=== PATIENT | female | born 1970 | race African-American/Black ===

== ENCOUNTER 2019-09-01 21:32 | Emergency (ER) | payer MEDICAID ==
[~2019-09-01] VITALS: Ht 162.6 cm; Wt 81.6 kg
[2019-09-01 21:37] VITALS: BP 160/90
--- NOTE | 2019-09-01 21:37 | NUR ---
PT WHEELCHAIRED TO BED #8
--- NOTE | 2019-09-01 21:47 | NUR ---
PT C/O SOB X1 DAY. PT STATES SHARP PAIN UPON INHALATION. PAIN PROVOKED BY AMBULATION. PT ABLE TO SPEAK IN FULL SENTENCES W/ NO DIFFICULTY. O2 SAT 99% ON ROOM AIR. DIMISHED BREATH SOUNDS UPON INHILATION BILATERAL BASES. PT DENIES N/V/D. VSS AT THIS TIME. PT SITTING IN BED, PLEASANT. MEDHX: COPD, DM, HTN ALLERGIES: DENIES
[2019-09-01] MEDS ORDERED: KETOROLAC 60 MG/2 ML VIAL IM ONE (23:10)
--- NOTE | 2019-09-01 23:56 | NUR ---
Dr. Orellana examining patient.
[2019-09-02 00:19] VITALS: BP 160/90
--- NOTE | 2019-09-02 00:19 | NUR ---
Patient discharged with v/s stable. Written and verbal after care instructions given and explained. Patient alert, oriented and verbalized understanding of instructions. Ambulatory with [facility]. NO ASSISTANCE WAS NEEDED. All questions addressed prior to discharge. ID band removed. Patient advised to follow up with PMD. Rx of MOTRIN AND PREDNISONE WERE given. Patient educated on indication of medication including possible reaction and side effects. Opportunity to ask questions provided and answered. PT WAS INSTRUCTED TO TAKE HER HTN MEDICATION WHEN SHE GOT HOME AND DIRECTED. PT WAS EDUCATED ON THE RISKS OF NOT TAKING MEDICATION PROPERLY. Addendum: 09/02/19 at 0038 by [email or web address] Patient discharged with v/s stable. Written and verbal after care instructions given and explained. Patient alert, oriented and verbalized understanding of instructions. Ambulatory with [facility]. NO ASSISTANCE WAS NEEDED. All questions addressed prior to discharge. ID band removed. Patient advised to follow up with PMD. Rx of MOTRIN AND PREDNISONE WERE given. Patient educated on indication of medication including possible reaction and side effects. Opportunity to ask questions provided and answered. PT WAS INSTRUCTED TO TAKE HER HTN MEDICATION WHEN SHE GOT HOME AND DIRECTED PER ERMD. PT WAS EDUCATED ON THE RISKS OF NOT TAKING MEDICATION PROPERLY.
== END 2019-09-02 00:19 | disposition home or self-care (01) ==
LOC: MED 21:32
DX: R06.02 Shortness of breath (principal); R50.9 Fever, unspecified; R11.0 Nausea; R07.89 Other chest pain; J44.9 Chronic obstructive pulmonary disease, unspecified; E11.9 Type 2 diabetes mellitus without complications; I10 Essential (primary) hypertension; F17.200 Nicotine dependence, unspecified, uncomplicated
CPT/HCPCS: 96372; 99283; J1885

== ENCOUNTER 2019-09-07 02:44 | Emergency (ER) | payer MEDICAID ==
[~2019-09-07] VITALS: Ht 175.3 cm; Wt 81.6 kg
--- NOTE | 2019-09-07 02:56 | NUR ---
PT TO ER BED 6
[2019-09-07 03:02] VITALS: BP 167/79
--- NOTE | 2019-09-07 03:05 | NUR ---
49 Y/O F PRESENTS TO ER C/O OF SHORTNESS OF BREATHE SINCE TODAY. PER PT "THE AIR QUALITY OUT THERE IS BAD BECAUSE OF ALL THESE FIRES." PT FEELS SHORT OF BREATHE AND HAS CHEST DISCOMFORT. PAIN LEVEL 6/10, DISCOMFORT WHILE BREATHING, PAIN DOES NOT RADIATE. RESPIRATIONS ARE EVEN AND UNLABORED. PT O2 SATURATION AT 99% ON RA. PT VOMITED X1. PT DENIES NAUSEA AT THIS TIME. NKA. MED HX: PREDIABETIC AND HTN. SAFETY MEASURES IN PLACE. ERMD AT BEDSIDE.
--- NOTE | 2019-09-07 03:14 | NUR ---
LAB AT BEDSIDE
[2019-09-07 03:26] LABS: BASOPHILS # (AUTO) 0.1 K/uL (0.00-0.22); BASOPHILS % (AUTO) 1.3 % (0.0-2.0); EOSINOPHILS # (AUTO) 0.1 K/uL (0-0.4); EOSINOPHILS % (AUTO) 2.8 % (0.0-4.0); HEMATOCRIT 31.9 % (36-48); HEMOGLOBIN 10.1 g/dL (12.0-16.0); LYMPHOCYTES # (AUTO) 1.4 K/uL (2.5-16.5); LYMPHOCYTES % (AUTO) 34.1 % (20.5-51.1); MEAN CORPUSCULAR HEMOGLOBIN 24 pg (27-31); MEAN CORPUSCULAR HGB CONC 32 g/dL (33-37); MEAN CORPUSCULAR VOLUME 75.7 fL (80-94); MONOCYTES # (AUTO) 0.5 K/uL (0.8-1.0); MONOCYTES % (AUTO) 11.5 % (1.7-9.3); NEUTROPHILS % (AUTO) 50.3 % (42.2-75.2); PLATELET COUNT (AUTO) 225 K/uL (140-450); RED BLOOD CELL COUNT(AUTO) 4.21 MIL/uL (4.20-5.40)
[2019-09-07 03:54] LABS: ALBUMIN 3.9 g/dL (3.4-5.0); ANION GAP 14.3 (8-16); CARBON DIOXIDE 28.6 mmol/L (21-32); CREATININE 0.6 mg/dL (0.6-1.3); TOTAL BILIRUBIN 0.5 mg/dL (0.0-1.0)
[2019-09-07 03:57] LABS: POTASSIUM 2.9 mmol/L (3.5-5.1)
[2019-09-07] MEDS ORDERED: POTASSIUM CHLORIDE 20% 40 MEQ/15 ML UDC PO ONE (04:00)
[2019-09-07] MEDS ORDERED: ALBUTEROL SULFATE/IPRATROPIU 3 ML SOL IH ONE (04:15)
[2019-09-07] MEDS ORDERED: ONDANSETRON 4 MG/2 ML VIAL IVP ONE (04:15)
[2019-09-07] MEDS ORDERED: POTASSIUM CHL 20 MEQ/ 1/2 NS 1,000 ML IV ONE (04:15)
--- NOTE | 2019-09-07 04:15 | NUR ---
PT VOMITED X 1 10 MINUTES AFTER MEDICATION ADMINISTRATION. ERMD MADE AWARE.
[2019-09-07] MEDS ORDERED: POTASSIUM CHLORIDE 10 MEQ TABER PO ONE (04:20)
[2019-09-07] MEDS ORDERED: ONDANSETRON 4 MG ODT PO ONE (04:20)
--- NOTE | 2019-09-07 04:36 | NUR ---
RT AT BEDSIDE
--- NOTE | 2019-09-07 05:23 | NUR ---
Dr. Hogan examining patient.
[2019-09-07 05:40] VITALS: BP 159/91
--- NOTE | 2019-09-07 05:40 | NUR ---
DISCHARGE PAPERS GIVEN TO PT. PT STATES RELIEF. NO C/O PAIN. NAUSEA. RX OF ALBUTEROL INH AND PREDNISONE GIVEN. SIDE EFFECTS EXPLAINED. INSTRUCTED TO F/U WITH PCP AND WHEN TO RETURN TO ER. PT VERBALLIZED UNDERSTANDING OF DC INSTRUCTIONS. ALL QUESTIONS ANSWERED.
== END 2019-09-07 05:40 | disposition home or self-care (01) ==
LOC: MED 02:44
DX: R06.02 Shortness of breath (principal); R05 Cough; J44.9 Chronic obstructive pulmonary disease, unspecified; E11.9 Type 2 diabetes mellitus without complications; I10 Essential (primary) hypertension; F17.200 Nicotine dependence, unspecified, uncomplicated
CPT/HCPCS: 36415; 71045; 80053; 83880; 84484; 85025; 87804; 93005; 94640; 99284; J7620; Q0092; Q0162

== ENCOUNTER 2020-06-09 19:41 | Emergency (ER) | payer MEDICAID ==
[~2020-06-09] VITALS: Ht 162.6 cm; Wt 77.1 kg
[2020-06-09 19:57] VITALS: BP 172/89
--- NOTE | 2020-06-09 23:13 | NUR ---
PT WHEELCHAIRED TO BED 3
--- NOTE | 2020-06-09 23:20 | NUR ---
LOW BACK PAIN RADAITING TO RIGHT LEG. PT STATES THAT SHE WAS IN A CHAIR YESTERDAY AND TWISTED HER BODY AND FELT PAIN AFTER THAT. 09/01 PAIN. PT STATES, " I WAS LIFTING SOMETHING HEAVY AND I HEARD SOMETHING POP." PAIN RDAIATES TO RT LEG AND DESCRIBES IT SHARP SHOOTING PAIN. PT STATES SHE FEELS HER RT LEG GETS NUMB WHEN THE PAIN STARTS. VSS. A&OX4. TOOK MOTRIN AT 1600 TODAY. PAIN IS GRADUALLY GETTING WORSE. CMS INTACT. CAP REFILL < 3. NO OBVIOUS DEFORMITY OR INJURIES NOTED. NKDA. PMH: HTN, ENLARGED HEART.
[2020-06-09] MEDS ORDERED: MORPHINE SULFATE 4 MG/ML SYR IM ONE (23:30)
[2020-06-09] MEDS ORDERED: KETOROLAC 30 MG/ML VIAL IM ONE (23:30)
--- NOTE | 2020-06-10 01:53 | NUR ---
pt sleeping comfortably. equal chest rise and fall. pt states pain level decreased. 3/10 pain level.
[2020-06-10] MEDS ORDERED: ONDANSETRON 4 MG ODT PO ONE (02:35)
[2020-06-10 02:41] VITALS: BP 151/81
--- NOTE | 2020-06-10 02:41 | NUR ---
Patient discharged with v/s stable. Written and verbal after care instructions given and explained. Patient alert, oriented and verbalized understanding of instructions. Wheel Chair Assisted. All questions addressed prior to discharge. ID band removed. Patient advised to follow up with PMD. Rx of NAPROSYN given. Patient educated on indication of medication including possible reaction and side effects. Opportunity to ask questions provided and answered.
== END 2020-06-10 02:41 | disposition home or self-care (01) ==
LOC: MED 19:41
DX: G89.29 Other chronic pain (principal); M54.5 Low back pain; E11.9 Type 2 diabetes mellitus without complications; J44.9 Chronic obstructive pulmonary disease, unspecified; I10 Essential (primary) hypertension
CPT/HCPCS: 96372; 99284; J1885; J2270; Q0162

== ENCOUNTER 2021-06-15 20:44 | Emergency (ER) | payer MEDICAID ==
[~2021-06-15] VITALS: Ht 162.6 cm; Wt 76.2 kg
[2021-06-15 20:50] VITALS: BP 156/127
[2021-06-15] MEDS ORDERED: LORazepam 1 MG TAB PO ONE (20:55)
[2021-06-15 21:30] LABS: BASOPHILS % (AUTO) 0.8 % (0.0-2.0); EOSINOPHILS % (AUTO) 0.2 % (0.0-4.0); HEMATOCRIT 33.9 % (36-48); HEMOGLOBIN 10.8 g/dL (12.0-16.0); LYMPHOCYTES % (AUTO) 20.2 % (20.5-51.1); MEAN CORPUSCULAR HEMOGLOBIN 25 pg (27-31); MEAN CORPUSCULAR HGB CONC 32 g/dL (33-37); MEAN CORPUSCULAR VOLUME 79.2 fL (80-94); MONOCYTES # (AUTO) 0.5 K/uL (0.8-1.0); MONOCYTES % (AUTO) 11.3 % (1.7-9.3); NEUTROPHILS # (AUTO) 3.2 K/uL (1.8-7.7); NEUTROPHILS % (AUTO) 67.5 % (42.2-75.2); PLATELET COUNT (AUTO) 303 K/uL (140-450); RED BLOOD CELL COUNT(AUTO) 4.28 MIL/uL (4.20-5.40); RED CELL DISTRIBUTION WIDTH 22.4 % (11.6-13.7); WHITE BLOOD COUNT (AUTO) 4.8 K/uL (4.8-10.8)
[2021-06-15 21:36] LABS: ANION GAP 14.3 (8-16); CARBON DIOXIDE 31.5 mmol/L (21-32); CREATININE 0.7 mg/dL (0.6-1.3)
[2021-06-15 21:39] LABS: POTASSIUM 2.8 mmol/L (3.5-5.1)
[2021-06-15] MEDS ORDERED: POTASSIUM CHLORIDE 10 MEQ TABER PO ONE (21:55)
[2021-06-15 22:13] VITALS: BP 100/76
== END 2021-06-15 22:13 | disposition home or self-care (01) ==
LOC: MED 20:44
DX: F41.9 Anxiety disorder, unspecified (principal); E87.6 Hypokalemia; R11.2 Nausea with vomiting, unspecified; R29.0 Tetany; J44.9 Chronic obstructive pulmonary disease, unspecified; E11.9 Type 2 diabetes mellitus without complications; I10 Essential (primary) hypertension
CPT/HCPCS: 36415; 80048; 85025; 99283

== ENCOUNTER 2021-08-03 22:08 | Emergency (ER) | payer MEDICAID ==
[~2021-08-03] VITALS: Ht 162.6 cm; Wt 76.2 kg
[2021-08-03 22:08] VITALS: BP 188/109
--- NOTE | 2021-08-03 22:10 | NUR ---
51/F BIBA FROM HOME C/O ALTERED MENTAL STATUS S/P ETOH PER EMS. FAMILY CALLED EMS BECAUSE PT IS MORE CONFUSED THAN NORMAL. PT ENDORSES DAILY CONSUMPTION OF ALCOHOL AND SMOKING. UPON ASSESSMENT PT COOPERATIVE, ABLE TO MAKE NEEDS KNOWN, PERRL. PT WITH MOMENTS OF CONFUSION. MEDHX- ETOH ABUSE, HTN, ENLARGED HEART, PYSCH NKA
--- NOTE | 2021-08-03 22:11 | NUR ---
PT BRITNEY MORRISON. TAKEN TO BED 12
--- NOTE | 2021-08-03 22:20 | NUR ---
Dr. Kim examining patient.
--- NOTE | 2021-08-03 22:36 | NUR ---
CAGE UNLOADER AT BEDSIDE
--- NOTE | 2021-08-03 22:49 | NUR ---
RETURN CALL FROM PT DAUGHTER ANDREA WHO SPOKE WITH DR. STAPLETON
--- NOTE | 2021-08-03 22:57 | NUR ---
PT TAKEN TO RADIOLOGY
[2021-08-03 22:58] LABS: HEMOGLOBIN 10.4 g/dL (12.0-16.0); MEAN CORPUSCULAR HEMOGLOBIN 27 pg (27-31); MEAN CORPUSCULAR HGB CONC 33 g/dL (33-37); MEAN CORPUSCULAR VOLUME 82.3 fL (80-94); PLATELET COUNT (AUTO) 302 K/uL (140-450); RED BLOOD CELL COUNT(AUTO) 3.89 MIL/uL (4.20-5.40); RED CELL DISTRIBUTION WIDTH 24.1 % (11.6-13.7); WHITE BLOOD COUNT (AUTO) 4.1 K/uL (4.8-10.8)
[2021-08-03 23:22] LABS: ALBUMIN 3.9 g/dL (3.4-5.0); ANION GAP 14.9 (8-16); ASPARTATE AMINOTRANSFERASE 155 U/L (15-37); CHLORIDE 96 mmol/L (98-107); CREATININE 0.7 mg/dL (0.6-1.3); FREE T4 (FREE THYROXINE) 0.92 ng/dL (0.76-1.46); GFR ARICAN-AMERICAN 113 mL/min (>90); GLUCOSE 105 mg/dL (74-106); SODIUM SERUM 138 mmol/L (136-145); THYROID STIMULATING HORMONE 0.84 uIU/mL (0.34-3.74); TOTAL BILIRUBIN 0.7 mg/dL (0.0-1.0); UREA NITROGEN, BLOOD 6 mg/dL (7-18)
[2021-08-03 23:28] LABS: EOSINOPHILS % (MANUAL) 2 % (0-4); LYMPHOCYTES % (MANUAL) 23 % (20-46); MONOCYTES % (MANUAL) 9 % (5-12)
[2021-08-03 23:30] LABS: ACETAMINOPHEN < 0.5 ug/ml (10-30)
[2021-08-03 23:31] LABS: POTASSIUM 2.9 mmol/L (3.5-5.1)
[2021-08-03] MEDS ORDERED: NACL 0.9% 500 ML IV ONE (23:35)
[2021-08-03] MEDS ORDERED: POTASSIUM CHLORIDE 10 MEQ TABER PO ONE (23:35)
[2021-08-03] MEDS ORDERED: KCL 20 MEQ/WATER INJ PREMIX 200 ML IV ONE (23:35)
[2021-08-03] MEDS ORDERED: MAG SULF 2000 MG/WATER PREMIX 50 ML IV ONE (23:35)
[2021-08-03] MEDS ORDERED: THIAMINE 200 MG/2 ML VIAL IV ONE (23:45)
--- NOTE | 2021-08-04 01:29 | NUR ---
UNABLE TO CONTACT ANDREA (DAUGHTER). WILL TRY AGAIN LATER.
--- NOTE | 2021-08-04 01:33 | NUR ---
DR. STAPLETON SPEAKING WITH PT DAUGHTER (OMEGA)
[2021-08-04] MEDS ORDERED: NACL 0.9% 500 ML IV ONE (01:55)
--- NOTE | 2021-08-04 02:27 | NUR ---
URINE SAMPLE COLLECTED AND SENT TO LAB
[2021-08-04 02:42] LABS: BILIRUBIN,URINE 1+ (NEGATIVE); BLOOD, URINE NEGATIVE (NEGATIVE); LEUKOCYTE ESTERASE ,URINE TRACE (NEGATIVE); NITRITE, URINE POSITIVE (NEGATIVE); UGLUCOSE NEGATIVE (NEGATIVE)
[2021-08-04 02:48] LABS: APPEARANCE,URINE HAZY (CLEAR); COLOR,URINE YELLOW (YELLOW)
[2021-08-04 03:01] LABS: BARBITURATE, URINE NEGATIVE ng/ml (NEG <=200); BENZODIAZEPINE, URINE NEGATIVE ng/mL (NEG <=200); CANNABINOID, URINE NEGATIVE ng/mL (NEG <=50); COCAINE, URINE NEGATIVE ng/mL (NEG <=300); OPIATE, URINE NEGATIVE ng/mL (NEG <=2000); PHENCYCLIDINE SCREEN,URINE NEGATIVE ng/mL (NEG <=25)
[2021-08-04 03:04] LABS: RBC,URINE 0-5 /HPF (0-5); WBC,URINE 0-5 /HPF (0-5)
[2021-08-04] MEDS ORDERED: CEPH-588 PO (03:08)
[2021-08-04 04:20] VITALS: BP 142/94
--- NOTE | 2021-08-04 04:20 | NUR ---
Patient discharged with v/s stable. Written and verbal after care instructions given and explained. Patient alert, oriented and verbalized understanding of instructions. Ambulatory with steady gait. All questions addressed prior to discharge. IV ACCESS AND ID band removed. Patient advised to follow up with PMD. Rx of KEFLEX given. Patient educated on indication of medication including possible reaction and side effects. Opportunity to ask questions provided and answered.
== END 2021-08-04 04:20 | disposition home or self-care (01) ==
LOC: MED 22:08
DX: N39.0 Urinary tract infection, site not specified (principal); R41.0 Disorientation, unspecified; J44.9 Chronic obstructive pulmonary disease, unspecified; I10 Essential (primary) hypertension; E11.9 Type 2 diabetes mellitus without complications; Z79.899 Other long term (current) drug therapy
CPT/HCPCS: 36415; 70450; 71045; 80053; 80305; 81001; 82550; 82948; 84439; 84443; 84484; 85025; 87086; 93005; 96361; 96365; 96366; 96368; 96375; 99285; G0480; G0482; J3411; J3475; J3480; J7030; 81002; Q0092